=== PATIENT | female | born 1990 | race African-American/Black ===

== ENCOUNTER 2017-11-07 10:29 | Emergency (ER) | payer SELFPAY ==
[~2017-11-07 10:29] MED LIST: CIPR250T2 PO; CLEO1SOL PV; FLAG500T PO; KONS520C PO; ZOFR4TAB3 SL; [UNRECOGNIZED DRUG - CODE] PR
[2017-11-07 10:45] VITALS: BP 198/115; PULSE 73; RESP 16; TEMP 98.2; O2SAT 100
--- NOTE | 2017-11-07 10:50 | PD ---
HPI Chief Complaint: Psychiatric Symptoms Time Seen by Provider: 10:47 Travel History International Travel<30 days: No Contact w/Intl Traveler<30days: No History of Present Illness HPI 26-year-old -[place] female presents emergency department under the Perez act with suicidal attempt and ideation. Patient reportedly is sick of her family not talking to her and is very depressed and wants to end her life. Patient reportedly grabbed a knife in her kitchen and tried to cut her left wrist however the diet was dull, so no break in the skin was made. Patient was brought in under the Perez act. She denies , or any medical issues. She has previous history of suicide attempt with overdose in the past. She is allergic to amoxicillin. PFSH Past Medical History Diminished Hearing: Yes (left [employer]) Inguinal Hernia: Yes Immunizations Current: Yes : 0 Para: 0 Miscarriage: 0 : 0 Social History Alcohol Use: Yes (EVERY OTHER DAY, 12PK AND 1 BOTTLE LIQUOR) Tobacco Use: Yes (1/2 PPD) Substance Use: No Allergies-Medications (Allergen,Severity, Reaction): Coded Allergies: amoxicillin (Unverified Allergy, Severe, HIVES, 01/30/17) Reported Meds & Prescriptions Reported Meds & Active Scripts Active Zofran ODT (Ondansetron HCl) 4 Mg Tab 4 Mg SL Q6H PRN FOR NAUSEA/VOMITING Cipro (Ciprofloxacin) 250 Mg Tab 250 Mg PO BID 3 Days Clindamycin Phosphate (Clindamycin Phosphate Vaginal) 2 % Cre 1 Appl PV HS 7 Days Metamucil (Psyllium Hydrophilic Mucilloid) 0.52 Gm Cap 1 Cap PO DAILY 30 Days Preparation H (Phenylephrine-Shark Liver Oil-) H Sup 1 Supp [place] BID 10 Days Flagyl (Metronidazole) 500 Mg Tab 500 Mg PO TID 7 Days Review of Systems Except as stated in HPI: all other systems reviewed are Neg General / Constitutional: No: Fever Eyes: No: Visual changes HENT: No: Headaches Cardiovascular: No: Chest Pain or Discomfort Respiratory: No: Shortness of Breath Gastrointestinal: No: Abdominal Pain Genitourinary: No: Dysuria Musculoskeletal: No: Pain Skin: No Rash Neurologic: No: Weakness Psychiatric: Positive: Depression, Suicidal Ideations, No: Substance Abuse, Homicidal Ideation Endocrine: No: Polydipsia Hematologic/Lymphatic: No: Easy Bruising Physical Exam Narrative GENERAL: Patient appears physically upset. SKIN: Warm and dry. Normal color. Normal turgor. No breaks in the skin. HEAD: Atraumatic. Normocephalic. EYES: Pupils equal and round. No scleral icterus. No injection or drainage. ENT: No nasal bleeding or discharge. Mucous membranes pink and moist. Pharynx is clear. Airways patent. NECK: Trachea midline. Supple and nontender. CARDIOVASCULAR: Regular rate and rhythm. RESPIRATORY: No accessory muscle use. Clear to auscultation. Breath sounds equal bilaterally. GASTROINTESTINAL: Abdomen soft, non-tender, nondistended. Hepatic and splenic margins not palpable. MUSCULOSKELETAL: Extremities without clubbing, cyanosis, or edema. No obvious deformities. NEUROLOGICAL: Awake and alert. No obvious cranial nerve deficits. Motor grossly within normal limits. Five out of 5 muscle strength in the arms and legs. Normal speech. PSYCHIATRIC: Appropriate mood and affect; insight and judgment normal. Data Data Last Documented VS Vital Signs Date Time Temp Pulse Resp B/P (MAP) Pulse Ox O2 Delivery O2 Flow Rate FiO2 11/08/17 05:40 60 18 164/87 (112) Room Air 18.00 11/07/17 22:33 97.4 100 Orders Orders Complete Blood Count With Diff (11/07/17 10:50) Comprehensive Metabolic Panel (11/07/17 10:50) Thyroid Stimulating Hormone (11/07/17 10:50) Urinalysis - C+S If Indicated (11/07/17 10:50) Ed Urine Pregnancytest Poc (11/07/17 10:50) Psych Screen (11/07/17 10:50) Lorazepam Inj (Ativan Inj) (11/07/17 11:00) Drug Screen, Random Urine (11/07/17 10:50) Alcohol (Ethanol) (11/07/17 10:50) Diet Regular Basic (11/07/17 Lunch) Diet Regular Basic (11/07/17 Dinner) Diet Regular Basic (11/08/17 Breakfast) Labs Laboratory Tests Test 11/07/17 10:55 11/07/17 12:03 White Blood Count 9.3 TH/MM3 Red Blood Count 4.59 MIL/MM3 Hemoglobin 14.8 GM/DL Hematocrit 43.3 % Mean Corpuscular Volume 94.3 FL Mean Corpuscular Hemoglobin 32.2 PG Mean Corpuscular Hemoglobin Concent 34.1 % Red Cell Distribution Width 13.3 % Platelet Count 363 TH/MM3 Mean Platelet Volume 7.8 FL Neutrophils (%) (Auto) 55.9 % Lymphocytes (%) (Auto) 36.9 % Monocytes (%) (Auto) 5.7 % Eosinophils (%) (Auto) 0.9 % Basophils (%) (Auto) 0.6 % Neutrophils # (Auto) 5.2 TH/MM3 Lymphocytes # (Auto) 3.4 TH/MM3 Monocytes # (Auto) 0.5 TH/MM3 Eosinophils # (Auto) 0.1 TH/MM3 Basophils # (Auto) 0.1 TH/MM3 CBC Comment DIFF FINAL Differential Comment Blood Urea Nitrogen 6 MG/DL Creatinine 0.93 MG/DL Random Glucose 89 MG/DL Total Protein 8.2 GM/DL Albumin 4.0 GM/DL Calcium Level 9.0 MG/DL Alkaline Phosphatase 60 U/L Aspartate Amino Transf (AST/SGOT) 21 U/L Alanine Aminotransferase (ALT/SGPT) 23 U/L Total Bilirubin 0.3 MG/DL Sodium Level 141 MEQ/L Potassium Level 4.1 MEQ/L Chloride Level 108 MEQ/L Carbon Dioxide Level 23.5 MEQ/L Anion Gap 10 MEQ/L Estimat Glomerular Filtration Rate 88 ML/MIN Thyroid Stimulating Hormone 3rd Gen 1.630 uIU/ML Ethyl Alcohol Level LESS THAN 3 MG/DL Urine Color YELLOW Urine Turbidity CLEAR Urine pH 5.5 Urine Specific [place] 1.016 Urine Protein NEG mg/dL Urine Glucose (UA) NEG mg/dL Urine Ketones NEG mg/dL Urine Occult Blood NEG Urine Nitrite NEG Urine Bilirubin NEG Urine Urobilinogen LESS THAN 2.0 MG/DL Urine Leukocyte Esterase MOD Urine RBC 1 /hpf Urine WBC 2 /hpf Urine Squamous Epithelial Cells 3 /hpf Microscopic Urinalysis Comment CULT NOT INDICATED Urine Opiates Screen NEG Urine Barbiturates Screen NEG Urine Amphetamines Screen NEG Urine Benzodiazepines Screen NEG Urine Cocaine Screen NEG Urine Cannabinoids Screen POS MDM Medical Decision Making Medical Screen Exam Complete: Yes Emergency Medical Condition: Yes Differential Diagnosis Perez act. Suicidal ideation. Suicide attempt. Narrative Course Psychiatric labs ordered per protocol. Patient is medically cleared for psychiatric evaluation. Psych screen is ordered. Condition: Stable Jonathan Miranda November 07, 2017 10:50
[2017-11-07] MEDS ORDERED: LORazepam 2 MG/ML VIAL IM ONE (11:00)
[2017-11-07 11:18] LABS: AUTOMATED NEUTROPHIL # 5.2 TH/MM3 (1.8-7.7); BASOPHIL # 0.1 TH/MM3 (0-0.2); BASOPHIL % 0.6 % (0.0-2.0); EOSINOPHIL # 0.1 TH/MM3 (0-0.4); EOSINOPHIL % 0.9 % (0.0-4.0); HEMATOCRIT 43.3 % (35.0-46.0); HEMOGLOBIN 14.8 GM/DL (11.6-15.3); LYMPH % 36.9 % (9.0-44.0); LYMPHOCYTE # 3.4 TH/MM3 (1.0-4.8); MEAN CELL VOLUME 94.3 FL (80.0-100.0); MEAN CORPUSCULAR HEMOGLOBIN 32.2 PG (27.0-34.0); MEAN CORPUSCULAR HGB CONC 34.1 % (32.0-36.0); MEAN PLATELET VOLUME 7.8 FL (7.0-11.0); MONO % 5.7 % (0.0-8.0); MONOCYTE # 0.5 TH/MM3 (0-0.9); NEUT % 55.9 % (16.0-70.0); PLATELET COUNT 363 TH/MM3 (150-450); RED BLOOD COUNT 4.59 MIL/MM3 (4.00-5.30); RED CELL DISTRIBUTION WIDTH 13.3 % (11.6-17.2); WHITE BLOOD COUNT 9.3 TH/MM3 (4.0-11.0)
[2017-11-07 11:34] LABS: AST (GOT) 21 U/L (15-37); BICARBONATE 23.5 MEQ/L (21.0-32.0); BLOOD UREA NITROGEN 6 MG/DL (7-18); CHLORIDE 108 MEQ/L (98-107); CREATININE 0.93 MG/DL (0.50-1.00); GLOMERULAR FILTRATION RATE 88 ML/MIN (>89); GLUCOSE,RANDOM 89 MG/DL (74-106); SODIUM (NA) 141 MEQ/L (136-145)
[2017-11-07 11:35] LABS: ALT (GPT) 23 U/L (10-53)
[2017-11-07 11:45] LABS: ALKALINE PHOSPHATASE 60 U/L (45-117); TOTAL BILIRUBIN ADULT 0.3 MG/DL (0.2-1.0); TOTAL PROTEIN 8.2 GM/DL (6.4-8.2)
[2017-11-07 13:21] LABS: BILIRUBIN, URINE NEG (NEG); BLOOD, URINE NEG (NEG); GLUCOSE,URINE NEG (NEG); KETONE, URINE NEG (NEG); NITRITE,URINE NEG (NEG); PH, URINE 5.5 (5.0-8.5); SQUAMOUS EPITHELIAL CELL URINE 3 /hpf (0-5); URINE COLOR YELLOW (YELLW/STRAW); URINE LEUKOCYTE ESTERASE MOD (NEG)
[2017-11-07 17:57] VITALS: BP 155/95; PULSE 62; TEMP 98.1; O2SAT 99
[2017-11-07 22:33] VITALS: BP 145/74; PULSE 66; RESP 18; TEMP 97.4; O2SAT 100
[2017-11-08 05:40] VITALS: BP 164/87; PULSE 60; RESP 18
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
--- NOTE | 2017-11-08 08:35 | PD ---
Physical Exam Date Seen by Provider: November 08, 2017 Time Seen by Provider: 08:32 Narrative 26-year-old female who was Perez acted and medically cleared for psychiatric evaluation, has been evaluated by the psychiatric staff and deemed psychiatrically stable for discharge at this time. Follow-up will be based on psychiatric note. Patient remains medically stable for discharge at this time. Data Data Last Documented VS Vital Signs Date Time Temp Pulse Resp B/P (MAP) Pulse Ox O2 Delivery O2 Flow Rate FiO2 11/08/17 05:40 60 18 164/87 (112) Room Air 18.00 11/07/17 22:33 97.4 100 Orders Orders Complete Blood Count With Diff (11/07/17 10:50) Comprehensive Metabolic Panel (11/07/17 10:50) Thyroid Stimulating Hormone (11/07/17 10:50) Urinalysis - C+S If Indicated (11/07/17 10:50) Ed Urine Pregnancytest Poc (11/07/17 10:50) Psych Screen (11/07/17 10:50) Lorazepam Inj (Ativan Inj) (11/07/17 11:00) Drug Screen, Random Urine (11/07/17 10:50) Alcohol (Ethanol) (11/07/17 10:50) Diet Regular Basic (11/07/17 Lunch) Diet Regular Basic (11/07/17 Dinner) Diet Regular Basic (11/08/17 Breakfast) Labs Laboratory Tests Test 11/07/17 10:55 11/07/17 12:03 White Blood Count 9.3 TH/MM3 Red Blood Count 4.59 MIL/MM3 Hemoglobin 14.8 GM/DL Hematocrit 43.3 % Mean Corpuscular Volume 94.3 FL Mean Corpuscular Hemoglobin 32.2 PG Mean Corpuscular Hemoglobin Concent 34.1 % Red Cell Distribution Width 13.3 % Platelet Count 363 TH/MM3 Mean Platelet Volume 7.8 FL Neutrophils (%) (Auto) 55.9 % Lymphocytes (%) (Auto) 36.9 % Monocytes (%) (Auto) 5.7 % Eosinophils (%) (Auto) 0.9 % Basophils (%) (Auto) 0.6 % Neutrophils # (Auto) 5.2 TH/MM3 Lymphocytes # (Auto) 3.4 TH/MM3 Monocytes # (Auto) 0.5 TH/MM3 Eosinophils # (Auto) 0.1 TH/MM3 Basophils # (Auto) 0.1 TH/MM3 CBC Comment DIFF FINAL Differential Comment Blood Urea Nitrogen 6 MG/DL Creatinine 0.93 MG/DL Random Glucose 89 MG/DL Total Protein 8.2 GM/DL Albumin 4.0 GM/DL Calcium Level 9.0 MG/DL Alkaline Phosphatase 60 U/L Aspartate Amino Transf (AST/SGOT) 21 U/L Alanine Aminotransferase (ALT/SGPT) 23 U/L Total Bilirubin 0.3 MG/DL Sodium Level 141 MEQ/L Potassium Level 4.1 MEQ/L Chloride Level 108 MEQ/L Carbon Dioxide Level 23.5 MEQ/L Anion Gap 10 MEQ/L Estimat Glomerular Filtration Rate 88 ML/MIN Thyroid Stimulating Hormone 3rd Gen 1.630 uIU/ML Ethyl Alcohol Level LESS THAN 3 MG/DL Urine Color YELLOW Urine Turbidity CLEAR Urine pH 5.5 Urine Specific [place] 1.016 Urine Protein NEG mg/dL Urine Glucose (UA) NEG mg/dL Urine Ketones NEG mg/dL Urine Occult Blood NEG Urine Nitrite NEG Urine Bilirubin NEG Urine Urobilinogen LESS THAN 2.0 MG/DL Urine Leukocyte Esterase MOD Urine RBC 1 /hpf Urine WBC 2 /hpf Urine Squamous Epithelial Cells 3 /hpf Microscopic Urinalysis Comment CULT NOT INDICATED Urine Opiates Screen NEG Urine Barbiturates Screen NEG Urine Amphetamines Screen NEG Urine Benzodiazepines Screen NEG Urine Cocaine Screen NEG Urine Cannabinoids Screen POS MDM Medical Record Reviewed: Yes Supervised Visit with SANJUANA: Yes Narrative Course 26-year-old female who was Perez acted and medically cleared for psychiatric evaluation, has been evaluated by the psychiatric staff and deemed psychiatrically stable for discharge at this time. Follow-up will be based on psychiatric note. Patient remains medically stable for discharge at this time. Patient Instructions: General Instructions Disposition: 01 DISCHARGE HOME Condition: Stable Jonathan Miranda November 08, 2017 08:35
== END 2017-11-08 09:30 | disposition home or self-care (01) ==
LOC: NEPJ 10:29
DX: F43.25 Adjustment disorder with mixed disturbance of emotions and conduct (principal); F12.10 Cannabis abuse, uncomplicated; F17.200 Nicotine dependence, unspecified, uncomplicated
CPT/HCPCS: 80053; 80307; 81001; 84443; 84703; 85025; 96372